=== PATIENT | female | born 1975 | race Caucasian/White ===

== ENCOUNTER 2021-02-15 07:04 | Day surgery (SDC) | payer OTHER ==
[~2021-02-15] VITALS: Ht 148.6 cm; Wt 140.6 kg
[~2021-02-15 07:04] MED LIST: CAR125T OR; FURO20TA3 PO; GLIP5TAB12 PO; LISI-275 PO; METF-370 PO
[2021-02-15] MEDS ORDERED: ALPRAZolam 0.5 MG TAB PO ONE (07:45)
[2021-02-15] MEDS ORDERED: LIDOCAINE 2%HCL (LOCAL ANESTH.) INJ 20ML MDV ONE (07:52)
[2021-02-15] MEDS ORDERED: ALPRAZolam 0.5 MG TAB ONE (08:03)
[2021-02-15] MEDS ORDERED: fentaNYL CITRATE 100 MCG/2 ML VL ONE (08:11)
[2021-02-15] MEDS ORDERED: ANGIOMAX 250 MG VIAL IV ONE (08:11)
[2021-02-15] MEDS ORDERED: SODIUM CHL 0.9% 0 ML ONE (08:12)
[2021-02-15] MEDS ORDERED: VERAPAMIL 2.5MG/ML INJ 2ML VIAL IV ONE (08:12)
[2021-02-15] MEDS ORDERED: MIDAZOLAM HCL 2MG/2ML 2ml VIAL (1mg/ml) ONE (08:12)
[2021-02-15] MEDS ORDERED: HEPARIN SODIUM (PORCINE) 5000 UNITS/ML 1ML VIAL ONE (08:12)
[2021-02-15] MEDS ORDERED: IOHEXOL 350 MG/ML 100ML IJ ONE (08:52)
[2021-02-15] MEDS ORDERED: diphenhdrAMINE HCL 50 MG/1 ML VL ONE (08:59)
== END 2021-02-15 11:35 | disposition home or self-care (01) ==
LOC: CATH 07:04
PROVIDERS: ATTEND Internal Medicine
DX: R94.39 Abnormal result of other cardiovascular function study (principal); I25.10 Atherosclerotic heart disease of native coronary artery without angina pectoris; I11.0 Hypertensive heart disease with heart failure; I50.9 Heart failure, unspecified; E11.51 Type 2 diabetes mellitus with diabetic peripheral angiopathy without gangrene; F17.200 Nicotine dependence, unspecified, uncomplicated; J44.9 Chronic obstructive pulmonary disease, unspecified; M79.89 Other specified soft tissue disorders; Z88.2 Allergy status to sulfonamides; Z79.84 Long term (current) use of oral hypoglycemic drugs; Z82.49 Family history of ischemic heart disease and other diseases of the circulatory system; Z20.822 Contact with and (suspected) exposure to COVID-19
CPT/HCPCS: 93458; C1769; C1887; C1894; J1200; J1644; J2250; J3010; Q9967; U0003; 99152; 99153

== ENCOUNTER → 2021-11-15 | Emergency (ER) | payer OTHER ==
[~2021-11-15] VITALS: Ht 149.9 cm; Wt 139.3 kg
[~2021-11-15] MED LIST changes: +SODIUM CHLORIDE 0.9% 1,000 ML IV ONE
[2021-11-15 10:46] VITALS: BP 135/91
[2021-11-15 10:56] LABS: Basophils # (auto) 0.1 10 ^3/uL (0-0.2); Basophils % (auto) 1.1 % (0.0-2.0); Eosinophils # (auto) 0.1 10 ^3/uL (0-0.8); Eosinophils % (auto) 1.2 % (0.0-7.0); Hematocrit 48.3 % (36.0-46.0); Hemoglobin 16.3 g/dL (12.2-16.2); Lymphocytes # (auto) 2.5 10 ^3/uL (0.4-5.4); Lymphocytes % (auto) 23.8 % (10.0-50.0); Mean Corpuscular Hgb Conc. 33.7 g/dL (32.0-36.0); Monocytes # (auto) 0.4 10 ^3/uL (0-1.3); Neutrophils # (auto) 7.4 10 ^3/uL (1.6-8.6); Neutrophils % (auto) 69.9 % (37.0-80.0); Nucleated Red Blood Cells % 0.2 %; Red Blood Cells 5.08 10^6/uL (4.0-5.20); Red Cell Distribution Width 13.8 % (11.8-14.3); White Blood Cell 10.6 10^3/uL (4.4-10.8)
[2021-11-15 11:19] LABS: Albumin 3.5 g/dL (3.4-5.0); Calcium 9.4 mg/dL (8.5-10.1)
[2021-11-15 11:23] LABS: BUN/Creatinine Ratio 9.6; Total Protein 8.5 g/dL (6.4-8.2)
[2021-11-15 11:29] LABS: Urine Bacteria FEW /hpf (None Seen); Urine Blood Negative /uL (Negative); Urine Mucus FEW (None Seen); Urine WBC 1 /hpf (0 - 5)
== END | disposition home or self-care (01) ==
LOC: ER 10:21
DX: R10.9 Unspecified abdominal pain (principal); E86.0 Dehydration; E11.65 Type 2 diabetes mellitus with hyperglycemia; I10 Essential (primary) hypertension; F12.10 Cannabis abuse, uncomplicated; Z88.2 Allergy status to sulfonamides; Z90.710 Acquired absence of both cervix and uterus
CPT/HCPCS: 36415; 74176; 80053; 81001; 83690; 85025; 96360; 99284; J7030

== ENCOUNTER 2021-11-23 08:23 | Emergency (ER) | payer OTHER ==
[~2021-11-23] VITALS: Ht 149.9 cm; Wt 140.0 kg
[~2021-11-23 08:23] MED LIST changes: -SODIUM CHLORIDE 0.9% 1,000 ML IV ONE
[2021-11-23] MEDS ORDERED: DOXY-286 PO ×2 (11:12→12:30)
[2021-11-23] MEDS ORDERED: LIDOCAINE 1% HCL (LOCAL ANESTH.) INJ 20ML MDV SC ONE (11:15)
[2021-11-23] MEDS: ONDANSETRON ODT 4 MG TAB PO ONE ×2 (11:22→11:35)
[2021-11-23] MEDS: MORPHINE SULFATE 4 MG/ML SYR/VIAL IM ONE ×2 (11:22→11:35)
== END 2021-11-23 12:34 | disposition home or self-care (01) ==
LOC: ER 08:23
DX: L02.416 Cutaneous abscess of left lower limb (principal); F12.10 Cannabis abuse, uncomplicated; E11.9 Type 2 diabetes mellitus without complications; I10 Essential (primary) hypertension; Z88.2 Allergy status to sulfonamides
CPT/HCPCS: Q0162